=== PATIENT | female | born 1975 | race American Indian/Alaskan Native ===

== ENCOUNTER 2022-06-12 06:08 | Inpatient (IN) | payer MEDICAID ==
[2022-06-08 11:42] LABS: Hematocrit 40.3 % (30.3-42.9); Hemoglobin 13.8 gm/dl (10.1-14.3); Mean Corpuscular HGB Conc 34 % (30-34); Mean Corpuscular Volume 91 fl (79-97); Platelet Count 242 K/mm3 (140-440); Red Blood Count 4.45 M/mm3 (3.65-5.03); Red Cell Distribution Width 12.9 % (13.2-15.2)
[2022-06-08 12:00] LABS: Blood Urea Nitrogen 7 mg/dL (7-17); Calcium 9.1 mg/dL (8.4-10.2); Hemolysis Index 13
--- NOTE | 2022-06-08 12:03 | Anesthesia Consultation ---
Anesthesia Consult and Med Hx Date of service: 06/12/22 - Airway Anesthetic Teeth Evaluation: Good ROM Head & Neck: Adequate Mental/Hyoid Distance: Adequate Mallampati Class: Class II Intubation Access Assessment: Probably Good - Pulmonary Exam CTA: Yes - Cardiac Exam Cardiac Exam: RRR - Pre-Operative Health Status ASA Pre-Surgery Classification: ASA3 Proposed Anesthetic Plan: General Nerve Block: TAP - Pulmonary Hx Smoking: No Hx Respiratory Symptoms: No (COVID+ 6wks ago w/ mild sore throat; resolved) - Cardiovascular System Hx Hypertension: Yes - Central Nervous System CVA: No - Endocrine Hx Renal Disease: No Hx Liver Disease: No Hx Insulin Dependent Diabetes: No Hx Non-Insulin Dependent Diabetes: No Hx Thyroid Disease: No - Other Systems Hx Obesity: Yes (BMI 47) - Additional Comments Anesthesia Medical History Comments: No hx anesthetic complications.
[2022-06-08 12:08] LABS: BUN/Creatinine Ratio 12
[~2022-06-12 06:08] MED LIST: ACETAMINOPHEN 500 MG TAB PO SCH; CELECOXIB 200 MG CAP PO NR; GABAPENTIN 300 MG CAP PO NR; MIDAZOLAM 2 MG/2 ML INJ IV NR; SCOPOLAMINE TRANSDERMAL PATCH 72 HR TD NR; fentaNYL 100 MCG/2 ML INJ IV PRN
--- NOTE | 2022-06-12 06:29 | History and Physical Report ---
History of Present Illness Date of examination: 06/12/22 Date of admission: 06/12/22 06:08 Chief complaint: Pelvic pain; AUB-L; uterine fibroids History of present illness: 47 yo female with history of enlarged uterus due to fiborids. She has had increasing pelvic pain and abnormal uterine bleeding. Medical managment with progestin IUD and pain medication has failed to help any of these symptoms resolve. 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 Family/Genetic History: hypertension Social history: no significant social history Medications and Allergies Allergies Allergy/AdvReac Type Severity Reaction Status Date / Time No Known Allergies Allergy Verified 06/05/22 16:16 Home Medications Medication Instructions Recorded Confirmed Last Taken Type Amlodipine Besylate [Norvasc] 10 mg PO QDAY 06/05/22 06/05/22 Unknown History Naproxen [Naprosyn] 500 mg PO QDAY 06/05/22 06/05/22 Unknown History hydroCHLOROthiazide [Hctz] 12.5 mg PO QDAY 06/05/22 06/05/22 Unknown History Active Meds: Active Medications Acetaminophen (Acetaminophen 500 Mg Tab) 1,000 mg PO PREOP HELENA Stop: 06/12/22 23:59 Celecoxib (Celecoxib 200 Mg Cap) 200 mg PO PREOP NR Stop: 06/12/22 23:59 Fentanyl (Fentanyl 100 Mcg/2 Ml Inj) 100 mcg IV ONCE PRN PRN Reason: sedation for nerve block Stop: 06/12/22 23:59 Gabapentin (Gabapentin 300 Mg Cap) 300 mg PO PREOP NR Stop: 06/12/22 23:59 Lactated Ringer's (Lactated Ringers) 1,000 mls @ 100 mls/hr IV DIRECT HELENA Stop: 06/12/22 23:59 Cefazolin Sodium 3 gm/ Sodium (Chloride) 100 mls @ 100 mls/30 min IV PREOP NR; Protocol Methocarbamol (Methocarbamol 500 Mg Tab) 1,500 mg PO PREOP HELENA Stop: 06/12/22 23:59 Midazolam HCl (Midazolam 2 Mg/2 Ml Inj) 2 mg IV PREOP NR Stop: 06/12/22 23:59 Scopolamine (Scopolamine Transdermal Patch 72 Hr) 1 each TD PREOP NR Stop: 06/12/22 23:59 Review of Systems All systems: negative Constitutional: chronic pain (Due to uterine fibroids.) Eyes: deferred Ears, nose, mouth and throat: deferred Cardiovascular: high blood pressure Breasts: normal Gastrointestinal: abdominal pain (Pelvic) Genitourinary: normal appearance, pelvic pain Rectal Exam: normal exam-external/orifice - Vital Signs Vital signs: Vital Signs Temp Pulse Resp BP Pulse Ox 98.9 F 78 20 137/93 100 06/08/22 11:00 06/08/22 11:00 06/08/22 11:00 06/08/22 11:00 06/08/22 11:00 Temp Pulse Resp BP Pulse Ox 98.9 F 78 20 137/93 100 06/08/22 11:00 06/08/22 11:00 06/08/22 11:00 06/08/22 11:00 06/08/22 11:00 - Physical Exam Breasts: Positive: normal Cardiovascular: Regular rate, Normal S1, Normal S2 Lungs: Positive: Clear to auscultation, Normal air movement Abdomen: Positive: normal appearance, soft, normal bowel sounds, abnormal bowel sounds. Negative: distention, tenderness Genitourinary (Female): Positive: normal external genitalia, normal perenium Vulva: both: normal Vagina: Positive: normal moisture. Negative: discharge Cervix: Negative: lesion, discharge Uterus: Positive: normal size, normal contour Adnexa: both: normal Anus/Rectum: Positive: normal perianal skin, heme negative. Negative: rectal mass, hemorrhoids Extremities: Positive: normal Deep Tendon Reflex Grade: Normal +2 Results Result Diagrams: 06/08/22 11:05 06/08/22 06:00 All other labs normal. Assessment and Plan - Patient Problems (1) Uterine leiomyoma Current Visit: Yes Status: Acute Plan to address problem: FAVIO (2) Abnormal uterine bleeding due to leiomyoma of uterus Current Visit: Yes Status: Acute Plan to address problem: FAVIO secondary to failed medical managment (3) Chronic pelvic pain in female Current Visit: Yes Status: Acute Plan to address problem: FAVIO due to failed medical managment (4) Enlarged uterus Current Visit: Yes Status: Acute Plan to address problem: FAVIO (5) IUD (intrauterine device) in place Current Visit: Yes Status: Acute
[2022-06-12] MEDS ORDERED: fentaNYL 100 MCG/2 ML INJ ONE (07:23)
--- NOTE | 2022-06-12 07:23 | Anesthesia Day of Surgery ---
Anesthesia Day of Surgery - Day of Surgery Patient Examined: Yes Patient H&P Reviewed: Yes Patient is NPO: Yes
[2022-06-12] MEDS ORDERED: propofoL 200 MG/20 ML VIAL IV ONE (07:24)
[2022-06-12] MEDS ORDERED: LIDOCAINE PF 100 MG/5 ML (CARDIAC SYRINGE) IV ONE (07:25)
[2022-06-12] MEDS ORDERED: SUCCINYLCHOLINE CHLORIDE 200 MG/10 ML INJ MDV ONE (07:25)
[2022-06-12] MEDS: LACTATED RINGERS 1,000 ML IV SCH ×3 (07:35→22:01)
[2022-06-12] MEDS ORDERED: ONDANSETRON 4 MG/2 ML INJ IV PRN ×2 (08:30→12:19)
[2022-06-12] MEDS ORDERED: HYDROmorphone 0.5 MG/0.5 ML INJ IV PRN (08:30)
[2022-06-12] MEDS ORDERED: SODIUM CHLORIDE 0.9% 50 ML ONE (09:03)
[2022-06-12] MEDS ORDERED: VASOPRESSIN 20 UNIT/1 ML INJ ONE (09:03)
[2022-06-12] MEDS ORDERED: BUPIVACAINE/PF (0.5%) 5 MG/1 ML 30 ML VIAL INFILTRATI ONE (09:03)
[2022-06-12] MEDS ORDERED: HYDROmorphone 1 MG/1 ML INJ ONE (09:08)
[2022-06-12] MEDS ORDERED: ANTICOAGULANT SOD CITRATE SOLUTION MC ONE (09:13)
[2022-06-12] MEDS ORDERED: ePHEDrine SULFATE 50 MG/1 ML INJ ONE (09:23)
[2022-06-12] MEDS ORDERED: VASOPRESSIN 20 UNIT/1 ML INJ IV ONE (09:27)
[2022-06-12] MEDS ORDERED: SODIUM CHLORIDE 0.9% 50 ML IVPB IV ONE (09:28)
[2022-06-12] MEDS ORDERED: SODIUM CHLORIDE 0.9% IRR 1,500 ML BOTTLE IR ONE (09:28)
[2022-06-12] MEDS ORDERED: LACTATED RINGERS 1,000 ML ONE (09:38)
[2022-06-12] MEDS ORDERED: dexAMETHasone 20 MG/5 ML VIAL ONE (09:39)
[2022-06-12] MEDS ORDERED: ROCURONIUM 50 MG/5 ML INJ IV ONE (10:16)
[2022-06-12] MEDS ORDERED: METHYLENE BLUE 50 MG/10 ML AMP ONE (10:20)
[2022-06-12] MEDS ORDERED: NALOXONE 0.4 MG/1 ML INJ IV PRN (12:19)
[2022-06-12] MEDS ORDERED: ACETAMINOPHEN 325 MG TAB PO PRN (12:19)
[2022-06-12] MEDS: KETOROLAC 30 MG/1 ML INJ IV PRN ×2 (12:38→19:42)
[2022-06-12] MEDS: HYDROmorphone 0.5 MG/0.5 ML INJ IV PRN ×2 (12:48→13:16)
[2022-06-12] MEDS: MORPHINE 4 MG/1 ML INJ IV PRN ×2 (16:04→21:58)
--- NOTE | 2022-06-12 16:13 | Post Anesthesia Evaluation ---
- Post Anesthesia Evaluation Patient Participated: Yes Airway Patent: Yes Stable Respiratory Function: Yes Nausea/Vomiting: No Temp > 96.8F: Yes Pain Manageable: Yes Adequeate Hydration: Yes Anesthesia Complications: No Block Receding Appropriately: Not Applicable Patient on Ventilator: No
[2022-06-12] MEDS: ceFAZolin/NS 1 GM/50 ML 1 GM/50 ML BAG IV SCH (17:09)
[2022-06-13] MEDS: ceFAZolin/NS 1 GM/50 ML 1 GM/50 ML BAG IV SCH (00:19)
[2022-06-13] MEDS: HYDROcodone/ACETAMINOPHEN 5-325 MG TAB PO PRN ×4 (00:27→19:44)
[2022-06-13] MEDS: IBUPROFEN 800 MG TAB PO PRN ×3 (04:12→16:56)
[2022-06-13 04:34] LABS: Basophils % (Auto) 0.1 % (0.0-1.8); Hematocrit 33.8 % (30.3-42.9); Hemoglobin 11.4 gm/dl (10.1-14.3); Lymphocytes # (Auto) 1.2 K/mm3 (1.2-5.4); Lymphocytes % (Auto) 8.2 % (13.4-35.0); Mean Corpuscular HGB Conc 34 % (30-34); Mean Corpuscular Volume 90 fl (79-97); Platelet Count 206 K/mm3 (140-440); Red Blood Count 3.75 M/mm3 (3.65-5.03); Red Cell Distribution Width 12.6 % (13.2-15.2)
--- NOTE | 2022-06-13 20:32 | Progress Note ---
Assessment and Plan - Patient Problems (1) Uterine leiomyoma Current Visit: Yes Status: Resolved Qualifiers: Uterine leiomyoma location: intramural and submucous Qualified Code(s): D25.1 - Intramural leiomyoma of uterus; D25.0 - Submucous leiomyoma of uterus (2) Abnormal uterine bleeding due to leiomyoma of uterus Current Visit: Yes Status: Resolved (3) Chronic pelvic pain in female Current Visit: Yes Status: Acute (4) Enlarged uterus Current Visit: Yes Status: Resolved (5) IUD (intrauterine device) in place Current Visit: Yes Status: Resolved (6) Status post total abdominal hysterectomy Current Visit: Yes Status: Acute (7) Status post bilateral salpingectomy Current Visit: Yes Status: Acute Subjective Date of service: 06/13/22 Principal diagnosis: Status post total abdominal hysterectomy and bilateral salpingectomy Interval history: Post operative day #1: Stable 47 yo female POD #1 s/p FAVIO/BS right ovarian cystotomy secondary to uterine fibroids, AUB, chronic pelvic pain, enlarged uterus. Additionally, there is an IUD which has been shown to be in situ. Denies NFVC Denies AUB Post operative pain moderately controlled Tolerating ice chips and clears. Denies symptoms associated with hypertension. Per nurse patient is a bit reluctant to walk. Patient states that she would like pain medication prior to ambulating. Incentive spirometry: compliant. Objective - Constitutional Vitals: Vital Signs - 12hr 06/13/22 06/13/22 08:31 12:27 Temperature 97.6 F 98.3 F Pulse Rate 70 77 Respiratory 18 18 Rate Blood Pressure 110/56 114/74 O2 Sat by Pulse 97 96 Oximetry General appearance: Present: no acute distress, well-nourished - Neck Neck: supple, normal ROM - Respiratory Details: Lungs CTAB; no Wheezies Rhonchi Respiratory effort: normal Respiratory: right: CTA - Breasts Breasts: normal - Cardiovascular Rhythm: regular Heart Sounds: Present: S1 & S2. Absent: gallop, rub Extremities: pulses intact, No edema, normal color, Full ROM - Gastrointestinal General gastrointestinal: Present: soft, non-tender, non-distended, normal bowel sounds Localized gastrointestinal: tender: RLQ, LLQ, guarding: suprapubic Rectal Exam: deferred - Genitourinary Female genitourinary: normal - Integumentary Integumentary: clear, warm, dry - Musculoskeletal Musculoskeletal: 1, strength equal bilaterally - Psychiatric Psychiatric: memory intact, appropriate mood/affect (Dressing clean dry and intact.), intact judgment & insight - Labs CBC & Chem 7: 06/13/22 03:38 06/08/22 06:00 Labs: Abnormal lab results 06/13/22 Range/Units 03:38 WBC 14.5 H (4.5-11.0) K/mm3 RDW 12.6 L (13.2-15.2) % Lymph % (Auto) 8.2 L (13.4-35.0) % [place] # (Auto) 1.0 H (0.0-0.8) K/mm3 Seg Neutrophils % 84.7 H (40.0-70.0) % Seg Neutrophils # 12.3 H (1.8-7.7) K/mm3 Medications & Allergies - Medications Allergies/Adverse Reactions: Allergies No Known Allergies Allergy (Verified 06/05/22 16:16) Home Medications: Home Medications Medication Instructions Recorded Confirmed Last Taken Type Amlodipine Besylate [Norvasc] 10 mg PO QDAY 06/05/22 06/12/22 06/12/22 05:00 History Naproxen [Naprosyn] 500 mg PO QDAY 06/05/22 06/12/22 06/09/22 09:00 History hydroCHLOROthiazide [Hctz] 12.5 mg PO QDAY 06/05/22 06/12/22 06/11/22 09:00 History Active Medications: Generic Name Dose Route Start Last Admin Trade Name Freq PRN Reason Stop Dose Admin Acetaminophen 650 mg 06/12/22 12:19 Acetaminophen 325 Mg Tab PO Q4H PRN Pain, Mild (1-3) Hydrocodone Bitart/Acetaminophen 2 each 06/12/22 12:19 06/13/22 19:44 Hydrocodone/Acetaminophen 5-325 Mg Tab PO 2 each Q6H PRN Administration Pain, Moderate (4-6) Ibuprofen 800 mg 06/12/22 12:19 06/13/22 16:56 Ibuprofen 800 Mg Tab PO 800 mg Q8H PRN Administration Pain, Moderate (4-6) Ketorolac Tromethamine 30 mg 06/12/22 12:19 06/12/22 19:42 Ketorolac 30 Mg/1 Ml Inj IV 06/17/22 12:18 30 mg Q6H PRN Administration Pain, Moderate (4-6) Morphine Sulfate 4 mg 06/12/22 12:19 06/12/22 21:58 Morphine 4 Mg/1 Ml Inj IV 4 mg Q4H PRN Administration Pain , Severe (7-10) Naloxone HCl 0.1 mg 06/12/22 12:19 Naloxone 0.4 Mg/1 Ml Inj IV Q2MIN PRN Res Rate </= 8 or 02 SAT < 92% Ondansetron HCl 4 mg 06/12/22 08:30 Ondansetron 4 Mg/2 Ml Inj IV ONCE PRN Nausea And Vomiting Ondansetron HCl 4 mg 06/12/22 12:19 Ondansetron 4 Mg/2 Ml Inj IV Q8H PRN Nausea And Vomiting
--- NOTE | 2022-06-13 21:17 | Operative Report ---
Operative Report Operative Report: Date of procedure: June 12, 2022 Preoperative diagnosis: 1. Uterine leiomyomata 2. Chronic pelvic pain 3. Abnormal uterine bleeding 4. IUD complication Postoperative diagnosis: 1. Uterine leiomyomata 2. Chronic pelvic pain 3. Abnormal uterine bleeding 4. IUD complication 5. Status post total abdominal hysterectomy and bilateral salpingectomy Procedure: 1. Total abdominal hysterectomy and bilateral salpingectomy 2. Exam under anesthesia Surgeon: Sachi Diaz MD Grants Analyst: Caitie Hayden MD Anesthesia: General Complications: None IVF: 2800 cc of crystalloids Urine output: 250 cc of clear urine Estimated blood loss: 500 cc Cell Saver: 250 cc Specimen: Uterus, fallopian tubes, fibroid Findings: Enlarged uterus with multiple fibroids palpated; large 8 cm fibroid on right anterior portion of uterus; left ovary normal: Right ovary with 3 cm simple cyst with clear straw colored fluid; normal appearing cervix. Procedure in detail: After being fully consented and made aware of the risk and benefits of the procedure as well as answering all of her questions patient was taken to the operating room where she was placed in dorsal supine position. After the appropriate timeout was taken general anesthesia was administered. An exam under anesthesia was performed and she was then prepped in the normal sterile fashion and a Higginbotham catheter was placed. Once the operative timeout was performed a transverse skin incision was made with a scalpel and then carried through to the underlying fascia with the Bovie on cut cauterizing any bleeders that were encountered. Once the fascia was observed it was nicked in the midline with the Bovie on cut and the incision was then extended bilaterally with the pickups with teeth and Velasquez scissors. Attention was then turned to the midline of the superior aspect of this incision and 2 Rolando clamps were placed on either side of the linea alba. This area was tented up and the underlying rectus poles were dissected off of the overlying fascia. Attention was then turned to the inferior aspect of this incision and the Rolando clamps were placed in the midline position the fascia and it was tented up and the underlying pyramidalis muscles were dissected off of the overlying fascia. Attention was then turned to the midline of the rectus muscles where the linea alba was located it was undermined with a hemostat and was also bluntly dissected down to the peritoneum. The peritoneum was entered into bluntly. The inferior aspect of this aperture was dissected in layers carefully avoiding the bladder. Superior aspect dissected cephalad carefully avoiding the bowel. Tension was then of the peritoneum and overlying rectus muscles with good visualization of the enlarged fibroid uterus. The bowel was packed away with a moist towel in the midline and laparotomy sponges laterally. Of note there was a large anterior fibroid on the right side which was obscuring the vasculature and round ligament. In order to gain better visualization of the structures vasopressin was injected into the area where the fibroid was located for hemostasis and it was dissected out of the uterus. Once this was done this area was stitched to prevent any further bleeding. The round ligament on the right side was located it was cauterized approximately 2 cm away from the uterus laterally and then cut a flap was then partially performed. The broad ligament was then located and a window was created in an avascular portion. After the right fallopian tube was identified via the fimbriated end and excised up to the uterus the IP ligament was then cauterized and excised away from the uterus as the ovary appeared to be normal and the patient expressed wishes to keep her ovaries. This was done with excellent hemostasis with the LigaSure impact device. A right ovarian cyst approximately 3 cm was noted to have clear straw colored fluid when it ruptured during procedure and appeared to be a simple cyst. After this was done the uterine vessels were skeletonized with good visualization of the urinary. It was cauterized at a right angle to the cervix and then cut with excellent hemostasis. The same procedure was carried out on the left side and the pedicles were suture-ligated and cut according to the preference of the litigation assistant Dr. Baldwin. This was done with excellent hemostasis Next the LigaSure impact device was used on right side to cauterize and cut the cardinal ligaments down to the uterosacral ligaments. The uterosacral ligaments were then clamped with a straight Guanako clamp and a scalpel was used to excise it and it was suture-ligated and tagged bilaterally. The same procedure was carried out on the left side. Prior to this being done, the uterine body was excised down to the cervix ( IUD strings not observed) and an Gustavo retractor was placed for better visualization. This was assessed to be quite long and the colpotomy was performed by tenting up on the cervico vaginal junction at the apex, incising it with a velasquez scissors and then circumferentially performing the colpotomy. Rolando clamps were used to isolate the vaginal cuff. Once the cervix was removed. It was handed off and the vaginal cuff was reapproximated while incorporating the uterosacral ligaments for support of the vaginal cuff. The remainder of the cuff was reapproximated in a running locked fashion. There was a small area of bleeding on the left side and it was treated with a figure of eight stitch with excellent hemostasis. The lower pelvis was irrigated and checked for bleeders of which there were none. Surgicel powder was placed along the vaginal cuff for additional reinforcement of hemostasis. The Gustavo retractor was removed as well as the moist towel and laparotomy sponges. A sponge count was immediately performed and was correct. 250 cc of autologous blood from cell saver was infused after a 500cc blood loss was assessed. The rectus muscles along with the peritoneum were reapproximated using 0 vicryl suture in a running fashion carefully avoiding the bladder and bowel. The fascia was identified and reapproximated using 0 vicryl suture in a running fashion with excellent hemostasis. The subcutaneous fatty layer was irrigated and checked for bleeders of which there was none. It was greater than 2cm thick and was reapproximated via the Theresa's fascia with excellent hemostasis. The skin was reapproximated using 3-0 monocryl suture in a subcuticular fashion with excellent hemostasis. Dermabond glue was added for further reinforcement of the incision and a pressure dressing was placed. All counts were correct x4. Patient tolerated the procedure well and was returned to the recovery room in stable condition after in successfully extubated. Dr. Campbell also proctored this procedure.
[2022-06-14] MEDS: HYDROcodone/ACETAMINOPHEN 5-325 MG TAB PO PRN ×2 (01:21→08:17)
[2022-06-14] MEDS: IBUPROFEN 800 MG TAB PO PRN (05:37)
--- NOTE | 2022-06-14 07:42 | Progress Note ---
Assessment and Plan POD #2 S/P FAVIO/BS doing well BP stable Normal recovery thus far Incision healing well. F/U in 2 weeks for incision check. Precautions given for bleeding infection pain DVT/PE V/U - Patient Problems (1) Uterine leiomyoma Current Visit: Yes Status: Resolved Qualifiers: Uterine leiomyoma location: intramural and submucous Qualified Code(s): D25.1 - Intramural leiomyoma of uterus; D25.0 - Submucous leiomyoma of uterus (2) Abnormal uterine bleeding due to leiomyoma of uterus Current Visit: Yes Status: Resolved (3) Chronic pelvic pain in female Current Visit: Yes Status: Acute (4) Enlarged uterus Current Visit: Yes Status: Resolved (5) IUD (intrauterine device) in place Current Visit: Yes Status: Resolved (6) Status post total abdominal hysterectomy Current Visit: Yes Status: Acute (7) Status post bilateral salpingectomy Current Visit: Yes Status: Acute Subjective Date of service: 06/14/22 Principal diagnosis: Status post total abdominal hysterectomy and bilateral salpingectomy Interval history: POD #2 47 yo Female s/p FAVIO/BS POD#2 doing well. +Flatus Tolerating a regular OOB AMB +Inc Spirometry Voiding without difficulty Pain well controlled Denies NVFC No major complaints. Objective - Constitutional Vitals: Vital Signs - 12hr 06/13/22 06/14/06/14/ 20:05 01:29 05:32 Temperature 98.0 F 98.6 F Pulse Rate 78 88 Respiratory 18 18 18 Rate Blood Pressure 122/70 Blood Pressure 115/75 [Left] O2 Sat by Pulse 98 98 Oximetry General appearance: Present: no acute distress, well-nourished - Neck Neck: supple, normal ROM - Respiratory Respiratory effort: normal Respiratory: bilateral: CTA - Breasts Breasts: normal - Cardiovascular Rhythm: regular Heart Sounds: Present: S1 & S2. Absent: gallop, rub Extremities: pulses intact, No edema, normal color, Full ROM - Gastrointestinal General gastrointestinal: Present: soft, non-tender, non-distended, normal bowel sounds Rectal Exam: deferred - Genitourinary Female genitourinary: normal (Minimal blood on pad) - Integumentary Integumentary: clear, warm, dry - Musculoskeletal Musculoskeletal: 1, strength equal bilaterally - Neurologic Neurologic: moves all extremities - Psychiatric Psychiatric: memory intact, appropriate mood/affect, intact judgment & insight - Labs CBC & Chem 7: 06/13/22 03:38 06/08/22 06:00 Medications & Allergies - Medications Allergies/Adverse Reactions: Allergies No Known Allergies Allergy (Verified 06/05/22 16:16) Home Medications: Home Medications Medication Instructions Recorded Confirmed Last Taken Type Amlodipine Besylate [Norvasc] 10 mg PO QDAY 06/05/22 06/12/22 06/12/22 05:00 History Naproxen [Naprosyn] 500 mg PO QDAY 06/05/22 06/12/22 06/09/22 09:00 History hydroCHLOROthiazide [Hctz] 12.5 mg PO QDAY 06/05/22 06/12/22 06/11/22 09:00 History Active Medications: Generic Name Dose Route Start Last Admin Trade Name Freq PRN Reason Stop Dose Admin Acetaminophen 650 mg 06/12/22 12:19 Acetaminophen 325 Mg Tab PO Q4H PRN Pain, Mild (1-3) Hydrocodone Bitart/Acetaminophen 2 each 06/12/22 12:19 06/14/22 01:21 Hydrocodone/Acetaminophen 5-325 Mg Tab PO 2 each Q6H PRN Administration Pain, Moderate (4-6) Ibuprofen 800 mg 06/12/22 12:19 06/14/22 05:37 Ibuprofen 800 Mg Tab PO 800 mg Q8H PRN Administration Pain, Moderate (4-6) Ketorolac Tromethamine 30 mg 06/12/22 12:19 06/12/22 19:42 Ketorolac 30 Mg/1 Ml Inj IV 06/17/22 12:18 30 mg Q6H PRN Administration Pain, Moderate (4-6) Morphine Sulfate 4 mg 06/12/22 12:19 06/12/22 21:58 Morphine 4 Mg/1 Ml Inj IV 4 mg Q4H PRN Administration Pain , Severe (7-10) Naloxone HCl 0.1 mg 06/12/22 12:19 Naloxone 0.4 Mg/1 Ml Inj IV Q2MIN PRN Res Rate </= 8 or 02 SAT < 92% Ondansetron HCl 4 mg 06/12/22 08:30 Ondansetron 4 Mg/2 Ml Inj IV ONCE PRN Nausea And Vomiting Ondansetron HCl 4 mg 06/12/22 12:19 Ondansetron 4 Mg/2 Ml Inj IV Q8H PRN Nausea And Vomiting
--- NOTE | 2022-06-14 08:00 | Discharge Summary ---
Providers - Providers Date of Admission: 06/12/22 06:08 Date of discharge: 06/14/22 Attending physician: KACEY Valenzuela Primary care physician: CHAUFFEUR MOTORBUS Date of Admission: 06/12/2022 Date of Discharge: 06/14/2022 Attending: Kacey Diaz MD Admitting Diagnosis: 1. Uterine fibroids 2. Abnromal uterine bleeidng 3. Chronic pelvic pain 4. IUD complication Discharge diagnosis: 1. Uterine fibroids 2. Abnromal uterine bleeidng 3. Chronic pelvic pain 4. IUD complication 5. S/P FAVIO/BS Condition: Stable Activity: No heavy lifting no driving while using narcotic pain medication Diet: regular Medication: Resume BP medication; Naproxen 500mg PO q12 hours pain; [place] 5/325 pain 1-2 pills q4-6 hours for severe pain. Consultations: None Procedure: FAVIO/Bilateral salpingectomy. Complications: None Follow up: 2 weeks incision check Hospital course: 47 yo female with history of uterine fibroids presented to definitive surgical managment after failed medical treatment for associated abnormal uterine bleeding and chronic pelvic pain. She underwent a FAVIO/BS and had an EBL of 500cc with 250 cc autologous return via cell saver. Of note she had a mechanical complication of her IUD whereby the strings were lost. It was encountered during the procedure. She tolerated the procedure well and was discharge home on POD#2 after demonstrating good bowel function, ambulation, voiding and tolerance of a regular diet. She was given precautions for bleeding, infection, pain, DVT/PE and wound complication. The importance of continued mobility and use of the incentive spirometer were discussed with patient and she verbalized an understanding. Hospitalization Condition: Stable Pertinent studies: None Procedures: FAVIO/BS Hospital course: Uncomplicated Disposition: 30 STILL A PATIENT Final Discharge Diagnosis (Prints w/discharge instructions): S/P FAVIO/BS - Discharge Diagnoses (1) Chronic pelvic pain in female Status: Acute (2) Status post total abdominal hysterectomy Status: Acute (3) Status post bilateral salpingectomy Status: Acute Core Measure Documentation - Palliative Care Palliative Care/ Comfort Measures: Palliative Care/Comfort Measures - Core Measures Any of the following diagnoses?: none - VTE Discharge Requirements Deep Vein Thrombosis/Pulmonary Embolism Present on Admission: No - Acute [facility] Discharge Requirements Aspirin at discharge: No Reason for no aspirin on DC: Patient refusal KELLEY/ARB for LVSD if EF <40%: Not Applicable Beta herbert at discharge: No Reason for no beta herbert on DC: Patient refusal Statin for LDL = or >100 mg/dl on DC: No Reason for no statin on DC: Patient refusal - Heart Failure Discharge Requirements KELLEY/ARB for LVSD if EF <40%: Not Applicable - Stroke Discharge Requirements Statin for LDL = or >70 mg/dl on DC: Not Applicable Anticoag for atrial fib/atrial flutter: Not Applicable Exam - Constitutional Vitals: Temp Pulse Resp BP Pulse Ox 98.6 F 88 18 115/75 98 06/14/22 05:32 06/14/22 05:32 06/14/22 05:06/14/22 05:06/14/22 01:29 General appearance: Present: no acute distress, well-nourished - EENT Eyes: Present: PERRL ENT: hearing intact, clear oral mucosa - Neck Neck: Present: supple, normal ROM - Respiratory Respiratory effort: normal Respiratory: bilateral: CTA - Cardiovascular Heart Sounds: Present: S1 & S2. Absent: rub, click - Extremities Extremities: pulses symmetrical, No edema Peripheral Pulses: within normal limits - Abdominal General gastrointestinal: Present: soft, non-tender, non-distended, normal bowel sounds Female genitourinary: Present: normal - Integumentary Integumentary: Present: clear, warm, dry - Musculoskeletal Musculoskeletal: gait normal, strength equal bilaterally - Psychiatric Psychiatric: appropriate mood/affect, intact judgment & insight - Neurologic Neurologic: CNII-XII intact, moves all extremities Plan Activity: advance as tolerated Weight Bearing Status: Non-Weight Bearing Diet: regular Care Plan Goals: Call your doctor immediately for: * Fever > 100.5 * Heavy vaginal bleeding ( >1 pad per hour) * Severe persistent headache * Shortness of breath * Reddened, hot, painful area to leg or breast * Drainage or odor from incision. * Keep incision clean and dry at all times and follow doctor's instructions regarding bathing/showering Plan of Treatment: Follow up in 2 week for incision check Restart BP meds at home and monitor BP Keep incision dry Health Concerns: CHTN: Continue BP meds at home and monitor BP. If BP <130/80 hold medication. Assessment: S/P FAVIO/BS Doing well with good bowel function. Appropriate for discharge today Follow up with: PRIMARY CARE, [Primary Care Provider] - 7 Days KACEY DIAZ MD [Staff Physician] - 7 Days Forms: [facility] Discharge Summary Prescriptions: HYDROcodone/APAP 5-325 [[place] 5-325 mg TAB] 1 each PO Q6H PRN 30 Days #30 tablet PRN Reason: Pain, Moderate (4-6) Amlodipine Besylate [Norvasc] 10 mg PO QDAY 30 Days #30 tab
[2022-06-14 09:15] VITALS: BP 125/77
== END 2022-06-14 10:29 | disposition home or self-care (01) | DRG 742 ==
LOC: 3A 06:08 → EDSTATUS 08:00 → OB 13:07
PROVIDERS: ADMIT Obstetrics & Gynecology; ATTEND Obstetrics & Gynecology
PROC: 0UT90ZZ Resection of Uterus, Open Approach (ICD-10-PCS; principal; 2022-06-12)
PROC: 0UB70ZZ Excision of Bilateral Fallopian Tubes, Open Approach (ICD-10-PCS; 2022-06-12)
DX: D25.9 Leiomyoma of uterus, unspecified (principal); Z68.42 Body mass index [BMI] 45.0-49.9, adult; T83.32XA Displacement of intrauterine contraceptive device, initial encounter; Z20.822 Contact with and (suspected) exposure to COVID-19; N93.9 Abnormal uterine and vaginal bleeding, unspecified; I10 Essential (primary) hypertension; E66.9 Obesity, unspecified; N85.2 Hypertrophy of uterus; D64.9 Anemia, unspecified; Z72.89 Other problems related to lifestyle; Y83.8 Other surgical procedures as the cause of abnormal reaction of the patient, or of later complication, without mention of misadventure at the time of the procedure; Y92.89 Other specified places as the place of occurrence of the external cause
CPT/HCPCS: 36415; 80048; 84703; 85025; 85027; 86850; 86900; 86901; 88305; 88307; G0378; J3490; J0330; J0690; J1100; J1170; J1885; J2001; J2250; J2270; J2704; J3010; J7120; Q9968; U0003